=== PATIENT | female | born 1980 | race Caucasian/White ===

== ENCOUNTER 2018-04-17 12:28 | Observation (INO) | payer MEDICAID ==
[~2018-04-17] VITALS: Ht 165.1 cm; Wt 80.5 kg
[~2018-04-17 12:28] MED LIST: ESTRACE2 MG PO; HYDROCODON-ACE1 EAC7 PO; HYDROCODONE-APA1 TAB PO
[2018-04-17 14:23] LABS: ALBUMIN 4.1 g/dL (3.4-5.0); ALKALINE PHOSPHATASE 68 U/L (46-116); ALT (SGPT) 23 U/L (10-68); BILIRUBIN - TOTAL 0.51 mg/dL (0.2-1.3); CALC OSMOLALITY 284 mosm/kg (275-300); CALCIUM 8.9 mg/dL (8.5-10.1); CARBON DIOXIDE 29.1 mmol/L (21.0-32.0); CHLORIDE - SERUM 106 mmol/L (98-107); CREATININE - SERUM 0.8 mg/dL (0.6-1.3); GLUCOSE 84 mg/dL (74-106); PROTEIN - SERUM 7.4 g/dL (6.4-8.2); SODIUM 144 mmol/L (136-145); UREA NITROGEN 11 mg/dL (7-18); eGFR NON AFRICAN AMERICAN 85 mL/min (90-120)
[2018-04-17 14:27] LABS: HEMATOCRIT 39.1 % (36.0-48.0); HEMOGLOBIN 13.5 g/dL (12-16); LYMPHOCYTES 24.7 % (15-50); MCH 30.3 pg (26.0-34.0); MCHC 34.5 g/dL (31.0-37.0); MCV 87.7 fL (80.0-100.0); MEAN PLATELET VOLUME 10.5 fL (7.4-10.4); NEUTROPHILS 68.4 % (40-80); PLATELET COUNT 200 10x3/uL (130-400); RBC 4.46 10x6/uL (4.00-5.40); RDW 12.3 % (11.5-14.5); WBC 4.5 10x3/uL (4.8-10.8)
[2018-04-17 16:05] LABS: UDS - AMPHET NEGATIVE QUAL (NEGATIVE); UDS - BARB NEGATIVE QUAL (NEGATIVE); UDS - BENZO NEGATIVE QUAL (NEGATIVE); UDS - COCAINE NEGATIVE QUAL (NEGATIVE); UDS - OPIATE NEGATIVE QUAL (NEGATIVE); UDS - PCP NEGATIVE QUAL (NEGATIVE); UDS - THC NEGATIVE QUAL (NEGATIVE)
[2018-04-17 16:20] LABS: APPEARANCE CLEAR (CLEAR); BILIRUBIN NEGATIVE (NEGATIVE); COLOR YELLOW (YELLOW); GLUCOSE NEGATIVE (NEGATIVE); KETONE NEGATIVE (NEGATIVE); NITRITE NEGATIVE (NEGATIVE); PROTEIN NEGATIVE (NEGATIVE); UROBILINOGEN NORMAL (NORMAL)
--- NOTE | 2018-04-17 19:32 | NUR ---
PT IN BED. FAMILY AT BEDSIDE. DENIES NEEDS AT THIS TIME.
[2018-04-17] MEDS ORDERED: BUSPAR10 MG PO (22:44)
[2018-04-17] MEDS ORDERED: KLONOPIN1 MG PO (22:44)
[2018-04-18] VITALS (7 sets, daily range): BP systolic 93–135; BP diastolic 48–79; Ht 165.1 cm; Wt 80.5 kg
--- NOTE | 2018-04-18 05:45 | NUR ---
RESTING IN BED WITH EYES CLOSED. NO S/S OF DISTRESS OBSERVED, WILL CONT. POC.
[2018-04-18 06:14] LABS: % SATURATION 24 % (15-55); IRON 56 ug/dl (35-150); TOTAL IRON BIND CAPACITY 231 ug/dl (260-445); UNSAT IRON BIND CAPACITY 175 ug/dl (150-375)
[2018-04-18 06:31] LABS: BASOPHILS 0.5 % (0-2); EOSINOPHILS 3.3 % (0-7); HEMATOCRIT 34.9 % (36.0-48.0); HEMOGLOBIN 11.8 g/dL (12-16); LYMPHOCYTES 29.5 % (15-50); MCH 30.3 pg (26.0-34.0); MCHC 33.8 g/dL (31.0-37.0); MCV 89.7 fL (80.0-100.0); MEAN PLATELET VOLUME 10.5 fL (7.4-10.4); MONOCYTES 10.8 % (2-11); NEUTROPHILS 55.9 % (40-80); PLATELET COUNT 178 10x3/uL (130-400); RBC 3.89 10x6/uL (4.00-5.40); WBC 4.2 10x3/uL (4.8-10.8)
[2018-04-18 06:33] LABS: ALBUMIN 3.2 g/dL (3.4-5.0); ALKALINE PHOSPHATASE 62 U/L (46-116); ALT (SGPT) 18 U/L (10-68); BILIRUBIN - TOTAL 0.39 mg/dL (0.2-1.3); CALC OSMOLALITY 286 mosm/kg (275-300); CALCIUM 8.4 mg/dL (8.5-10.1); CARBON DIOXIDE 26.1 mmol/L (21.0-32.0); CHLORIDE - SERUM 110 mmol/L (98-107); CKMB 0.3 U/L (0.0-3.6); CREATINE KINASE 49 UL (21-215); CREATININE - SERUM 0.7 mg/dL (0.6-1.3); FERRITIN 136 ng/mL (3-244); GLUCOSE 100 mg/dL (74-106); MAGNESIUM - SERUM 2.1 mg/dL (1.8-2.4); POTASSIUM - SERUM 4.4 mmol/L (3.5-5.1); PROTEIN - SERUM 5.7 g/dL (6.4-8.2); SODIUM 144 mmol/L (136-145); TROPONIN-I < 0.017 ng/mL (0.000-0.060); UREA NITROGEN 13 mg/dL (7-18); eGFR NON AFRICAN AMERICAN > 90 mL/min (90-120)
--- NOTE | 2018-04-18 12:55 | CN ---
PATIENT NAME:PILO MCGEE ANN MEDICAL RECORD: [id number] : 76 LOCATION:. D.2116 ADMIT DATE: 04/17/18 ACCOUNT: [id number] CONSULTING PHYSICIAN: YISSEL MASTERS MD REFERRING PHYSICIAN: SILVINO ROJAS MD DATE OF CONSULTATION: 04/18/2018 HISTORY OF PRESENT ILLNESS: A 37-year-old female with no known cardiovascular history. She has a history of last couple of days having near syncopal episode. Some of this sounds vagal with marked nausea, shakiness, diaphoresis, pallor. Yesterday sat down to drink a diet coke and was noted to be somewhat hypotensive and sinus arrhythmia on monitor. Carotid Doppler is normal at this point. Head CT without significant pathology. She has noticed that during this time had some intermittent headache as well. We are asked to see her concerning her cardiovascular status. PAST MEDICAL HISTORY: Otherwise includes a history of anxiety. ALLERGIES: MORPHINE AND CODEINE. SOCIAL HISTORY: Uses an E-cigarette. No illicit drug use. No set exercise program. MEDICATIONS: Include BuSpar 10 b.i.d., Klonopin 1 b.i.d. REVIEW OF SYSTEMS: The patient reports easy bruising but reports no swollen glands. The patient reports no fever, no night sweats, no significant weight gain, no significant weight loss. No significant exercise tolerance. The patient reports no dry eyes, no irritation, no vision change. Patient reports no difficulty hearing and no ear pain. Patient reports no frequent nose bleeds or nose and sinus problems. Patient reports on arm pain on exertion. No shortness of breath while lying down. No history of heart murmur. Patient reports no cough, no wheezing or coughing up blood. Patient reports no abdominal pain, no vomiting. Normal appetite. No diarrhea and not vomiting blood. No nausea and no constipation. Patient reports no incontinence. No difficulty urinating. No hematuria. No increased frequency. Patient reports no muscle aches. No weakness, no arthralgias, no back pain. No swelling of the extremities. Patient reports no abnormal mole, no jaundice, no rashes. Reports no loss of consciousness. No weakness and no numbness. No seizures, dizziness, or headaches. The patient reports no depression, no sleep disturbance, feeling safe in a relationship and no alcohol abuse. Patient reports on fatigue. Reports no runny nose or sinus pressure. No itching, no hives, and no frequent sneezing. PHYSICAL EXAMINATION: GENERAL: Young female in no acute distress. VITAL SIGNS: Blood pressure currently 135/79, pulse 71 and regular. HEENT: Normocephalic, atraumatic. NECK: No bruits noted. HEART: Regular. LUNGS: Good air excursion. ABDOMEN: Soft, nontender. EXTREMITIES: Pulses 2+. No edema. DIAGNOSTIC DATA: ECG and telemetry show sinus arrhythmia only. CONSULT REPORT [id number] PILO MCGEE ANN IMPRESSION: Near syncope, question increased vagal tone, normal sinus arrhythmia on the telemetry. We will check echocardiographic study; however doubt cardiac etiology of her symptoms. TRANSINT:[id number] Voice Confirmation ID: [id number] DOCUMENT ID: [id number] YISSEL MASTERS MD at 1255 CC: [id number] DICTATION DATE: 04/18/18 0802 ORDER PROCESSING MANAGER: 04/18/18 1058 ADM IN [place] [id number] [place] [address]
--- NOTE | 2018-04-18 13:46 | NUR ---
[employer] AT BS. DOES NOT WANT SCDS AT THIS TIME.
--- NOTE | 2018-04-18 17:14 | NUR ---
IV AQND TELEMETRY DCD. DC PLANS GIVEN. UNDERSTANDING VOICED. ESCORTED TO CAR BY W/C.
--- NOTE | 2018-04-18 17:25 | NUR ---
IV AND TELEMETRY DCD. DC PLANS GIVEN. UNDERSTANDING VOICED.
--- NOTE | 2018-04-20 09:42 | MORECARE ---
CASE MANAGEMENT DISCHARGE SUMMARY PATIENT: PILO MCGEE ANN UNIT: [id number] ADM DATE: 04/17/18 AGE: 37 : [birth year] SEX: F ROOM/BED: D.2116 AUTHOR: MAK NEWMAN PHYSICIAN: REFERRING PHYSICIAN: SILVINO ROJAS MD DATE OF SERVICE: 04/20/18 Discharge Plan Patient Name: PILO MCGEE [facility] [facility] 1980 Planned Disposition: Home Anticipated Discharge Date: 04/18/18 Discharge Date: 04/18/2018 Expected LOS: 1 Initial Reviewer: [email or web address] Initial Review Date: 04/20/2018 Generated: 04/20/18 10:42 am Patient Name: PILO MCGEE Page [id number] at 0942 All edits/amendments must be made on the electronic document DICTATION DATE: 04/20/18941 CHIEF EXECUTIVE: KIKE 04/20/18941 RPT#: [id number] DC DATE:04/18/18 STATUS: DIS IN [facility] [address] [place] [address] END OF REPORT
[2018-04-20 12:12] LABS: FOLATE (FOLIC ACID) - SERUM 9.4 ng/mL (>3.0)
--- NOTE | 2018-04-24 12:22 | EC ---
PATIENT:PILO MCGEE ANN DATE OF SERVICE: 04/17/18 SEX: F MEDICAL RECORD: [id number] DATE OF : [birth year] LOCATION:D.M2 D.211 AGE OF PATIENT: 37 ADMISSION DATE: 04/17/18 REFERRING PHYSICIAN: INTERPRETING PHYSICIAN: YISSEL MASTERS MD ECHOCARDIOGRAM REPORT ECHO CHARGES 4 ECHO COMPLETE Date: 04/18/18 CLINICAL DIAGNOSIS: TIA/SYNCOPE ECHOCARDIOGRAPHIC MEASUREMENTS (adult normal given) AC root (d.<3.7cm) 2.7 cm LV Septum d (<1.2 cm> 1.2 cm Valve Excursion 1.9 cm LV Septum (systole) 1.6 cm Left Atria (s.<4.0cm> 3.3 cm LVPW d(<1.2cm) 1.1 cm RV (d.<2.3cm) 2.5 cm LVPW (sytole) 1.7 cm LV diastole(<5.6CM) 4.4 cm MV E-F(>70mm/sec) cm LV systole 2.6 cm LVOT Diameter 1.9 cm MV exc.(>10mm) cm Est.ejection fraction (50-75%) % DOPPLER: LVIT cm/sec A 39.0 cm/sec E 95.0 cm/sec LA cm/sec RVSP 35.0 mmHg LVOT 101 cm/sec AOP1/2T m/s Asc. Ao 134 cm/sec RVOT 75.0 cm/sec RA cm/sec PA 83.0 cm/sec AV Gradient Peak 7.2 mmHg AV Mean 3.4 mmHg AV Area 1.9 cm MV Gradient Peak 4.8 mmHg MV Mean 1.2 mmHg MV Area cm COMMENTS: Lotus Notes Administrator: 1 VLADIMIR DOYLEOE Fish Machine Feeder: 3 Dr. Diallo TAPE# PACS Pericardial Effusion N DATE OF SERVICE: Adequate 2-D echo, color flow and spectral Doppler, and M-Mode. No LVH. LV internal dimension is normal. Wall motion is normal. EF is greater than or equal to 55%. Aortic valve is tricuspid. No evidence of stenosis by Doppler interrogation. Left atrium is normal. Mitral valve shows no prolapse. Physiologic MR only. Right-sided chambers are grossly normal. Physiologic TR only. ECHOCARDIOGRAM REPORT [id number] PILO MCGEEKWAKU TRANSINT:[id number] Voice Confirmation ID: [id number] DOCUMENT ID: [id number] YISSEL MASTERS MD at 1222 CC: [id number] DICTATION DATE: 04/19/1855 CAR BARN LABORER: 04/19/18 1145 DIS IN 04/18/18 [place] [id number] [place] [id number]
== END 2018-04-18 17:26 | disposition home or self-care (01) ==
LOC: D.ER 12:28 → D.EDHOLD 18:12 → D.M2 18:12 → OBSVTIME 18:12 → D.M2 18:13
PROVIDERS: Family Medicine; ADMIT Internal Medicine Nephrology
DX: I95.1 Orthostatic hypotension (principal); R00.1 Bradycardia, unspecified; D50.9 Iron deficiency anemia, unspecified; G43.909 Migraine, unspecified, not intractable, without status migrainosus; F41.9 Anxiety disorder, unspecified; F17.213 Nicotine dependence, cigarettes, with withdrawal; R55 Syncope and collapse; R47.89 Other speech disturbances